=== PATIENT | female | born 1940 | race Caucasian/White ===

== ENCOUNTER 2017-04-09 15:10 | Inpatient (IN) | payer MEDICARE, BC ==
[~2017-04-09] VITALS: Ht 172.7 cm; Wt 54.8 kg
[2017-04-09] MEDS ORDERED: hydrALAzine 20 MG/ML, 1ML ONE (15:45)
[2017-04-09] MEDS ORDERED: ASPIRIN 81 MG TABLET CHEW ONE (15:46)
[2017-04-09 15:51] LABS: HEMATOCRIT 43.1 % (34.6-47.8); HEMOGLOBIN 14.8 g/dL (11.7-16.4); WHITE BLOOD COUNT 4.4 x10^3/uL (3.4-10)
[2017-04-09] MEDS ORDERED: SODIUM CHLORIDE FLUSH 10ML SYR IVF ONE (16:00)
[2017-04-09] MEDS ORDERED: ASPIRIN 81 MG TABLET CHEW PO ONE (16:00)
[2017-04-09] MEDS ORDERED: hydrALAzine 20 MG/ML, 1ML IV ONE ×2 (16:00→17:00)
[2017-04-09 16:03] LABS: BLOOD UREA NITROGEN 12 mg/dL (7-18)
[2017-04-09 16:07] LABS: IS PT STATUS REG ER OR PRE ER? YES
[2017-04-09] MEDS ORDERED: ADAL40KI IM (17:00)
[2017-04-09] MEDS ORDERED: FOLI20CA PO (17:00)
[2017-04-09] MEDS ORDERED: HYDR200T PO (17:00)
[2017-04-09] MEDS ORDERED: prolea SQ (17:00)
[2017-04-09] MEDS ORDERED: METH2.5T PO (17:00)
[2017-04-09 17:34] VITALS: BP 201/92
[2017-04-09] MEDS ORDERED: LABETALOL 5MG/ML, 20ML IVPush ONE (18:00)
[2017-04-09 18:23] VITALS: BP 163/101
[2017-04-09] MEDS ORDERED: DOCUSATE 100 MG CAPSULE PO PRN (18:30)
[2017-04-09] MEDS ORDERED: POLYETHYLENE GLYCOL 17 GM PACKET PO PRN (18:30)
[2017-04-09] MEDS ORDERED: LABETALOL 5MG/ML, 20ML IVPush PRN (18:30)
[2017-04-09] MEDS ORDERED: ENOXAPARIN 40 MG/0.4 ML SQ SCH (18:30)
[2017-04-09] MEDS ORDERED: ENALAPRILAT 1.25 MG/ML, 2ML IVPush PRN (18:30)
[2017-04-09] MEDS ORDERED: BISACODYL 10 MG SUPP PR PRN (18:30)
[2017-04-09 20:33] VITALS: BP_SYST 155; BP_SYST 167; BP_SYST 175; BP_DIAS 111; BP_DIAS 112; BP_DIAS 90
[2017-04-09 20:56] VITALS: BP 157/88
[2017-04-09] MEDS: ACETAMINOPHEN 325 MG TABLET PO PRN (20:59)
[2017-04-09 21:24] LABS: IS PT STATUS REG ER OR PRE ER? NO
[2017-04-09 21:36] LABS: PATH.CAST-FLAG NOT PRESENT; SPERM-FLAG NOT PRESENT; SRC-FLAG NOT PRESENT; XTAL-FLAG NOT PRESENT; YLC-FLAG NOT PRESENT
[2017-04-10 00:54] VITALS: BP 154/91
[2017-04-10] MEDS: ACETAMINOPHEN 325 MG TABLET PO PRN (00:57)
[2017-04-10 01:24] LABS: IS PT STATUS REG ER OR PRE ER? NO
[2017-04-10 04:59] LABS: HEMATOCRIT 42.4 % (34.6-47.8); HEMOGLOBIN 14.4 g/dL (11.7-16.4); WHITE BLOOD COUNT 5.6 x10^3/uL (3.4-10)
[2017-04-10 05:14] VITALS: BP 126/74
[2017-04-10 05:16] LABS: ASPARTATE AMINO TRANSFERASE 23 U/L (15-37); BLOOD UREA NITROGEN 12 mg/dL (7-18)
[2017-04-10 09:11] VITALS: BP 165/94
[2017-04-10] MEDS ORDERED: LEVO100T5 PO (11:27)
[2017-04-10 11:30] VITALS: BP 118/81
[2017-04-10 11:35] VITALS: BP 119/80
[2017-04-10] MEDS ORDERED: LISI5TAB7 PO (14:37)
[2017-04-10] MEDS ORDERED: ALPR-475 PO (15:41)
== END 2017-04-10 17:00 | disposition home or self-care (01) | DRG 304 ==
LOC: ED 17:09 → EDIP 17:10 → 5SO 17:41 → DCLOUNGE 04-10 16:55
PROVIDERS: ADMIT Internal Medicine; ATTEND Internal Medicine
DX: I16.0 Hypertensive urgency (principal); E43 Unspecified severe protein-calorie malnutrition; D75.89 Other specified diseases of blood and blood-forming organs; M06.9 Rheumatoid arthritis, unspecified; M41.9 Scoliosis, unspecified; E03.9 Hypothyroidism, unspecified; F41.9 Anxiety disorder, unspecified; Z88.2 Allergy status to sulfonamides; I10 Essential (primary) hypertension; M19.90 Unspecified osteoarthritis, unspecified site; M81.0 Age-related osteoporosis without current pathological fracture; Z66 Do not resuscitate; Z80.0 Family history of malignant neoplasm of digestive organs; Z87.891 Personal history of nicotine dependence
CPT/HCPCS: 36415; 71010; 80048; 80053; 80061; 81001; 82040; 82607; 83735; 83880; 84100; 84145; 84439; 84443; 84484; 85025; 87040; 93005; 93306; 96374; 96376; J1650; J0360

== ENCOUNTER → 2017-09-14 | Outpatient (CLI) | payer MEDICARE, BC ==
[~2017-09-14] MED LIST: ADAL40KI IM; ALPR-475 PO; FOLI20CA PO; HYDR200T PO; LEVO100T5 PO; LISI5TAB7 PO; METH2.5T PO; prolea SQ
== END | disposition home or self-care (01) ==
LOC: CFH 09:35
PROVIDERS: ATTEND Family Medicine
DX: R91.1 Solitary pulmonary nodule (principal)
CPT/HCPCS: 71046